=== PATIENT | male | born 1995 | race Caucasian/White ===

== ENCOUNTER 2018-08-18 09:30 | Outpatient (CLI) | payer BC ==
--- NOTE | 2018-08-18 16:58 | Diagnostic Imaging Report ---
STACY ROBIN [facility] [address] [facility] [address] [address] Report Submission Date: Aug 18, 2018 10:03:15 AM CDT Patient Study Name: ROCKY KIMBALL Date: Aug 18, 2018 9:39:50 AM CDT Modality Type: DX Gender: M Description: LOWER EXTREMITY : 89 Institution: [facility] Physician: STACY ROBIN Left knee History: Pain. Injured at a competition. AP, lateral and sunrise views of the left knee demonstrate no osseous abnormality and no joint effusion. Impression: No osseous abnormality. Electronically signed on Aug 18, 2018 10:03:15 AM CDT by: Ashely LOVING
== END 2018-08-18 09:32 ==
LOC: RAD 09:30
PROVIDERS: ATTEND Nurse Practitioner Family
DX: M25.562 Pain in left knee (principal)
CPT/HCPCS: 73562

== ENCOUNTER 2019-06-07 07:01 | Emergency (ER) | payer OTHER ==
--- NOTE | 2019-06-07 07:12 | ED Physician Documentation ---
General Adult - HISTORIAN Historian: patient - HPI Stated Complaint: left flank pain which is resolved Chief Complaint: Flank Pain Onset: hours (1) Timing: gone now Severity: mild Further Comments: yes (He states that woke at 0615 and he had pain in the left flank - he was not able to get comfortable. He got up and instantly had a lot sweating. He states that lasted a few seconds he did urinate and the sweating and pain went away. No pain with urination. No visable blood. No noted injury) - ROS CONST: no problems - PAST HX Past History: none Immunizations: UTD Allergies/Adverse Reactions: Allergies Allergy/AdvReac Type Severity Reaction Status Date / Time Penicillins Allergy Unknown Unverified 06/07/19 07:19 Home Medications: Ambulatory Orders Medication Instructions Recorded Weight Loss Medication 06/07/19 - SOCIAL HX Smoking History: non-smoker Alcohol Use: none Drug Use: none - FAMILY HX Family History: No - REVIEWED ASSESSMENTS Nursing Assessment Reviewed: Yes Vitals Reviewed: Yes General Adult Physical Exam - PHYSICAL EXAM GENERAL APPEARANCE: no distress EENT: eye inspection normal, no signs of dehydration NECK: normal inspection RESPIRATORY: no resp distress, chest non-tender, breath sounds normal CVS: reg rate & rhythm, heart sounds normal ABDOMEN: soft, normal bowel sounds, no distension, non-tender BACK: normal inspection, no CVA tenderness SKIN: warm/dry, normal color EXTREMITIES: non-tender NEURO: oriented X3 Discharge Clincal Impression: Flank pain Referrals: Kenyetta Pollard MD [Primary Care Provider] - 2 Days Comments: 1. Increase fluids 2. Monitor for any blood in urine 3. Follow up with PCP in 2-4 days 4. Return to ER for any increasing concerns Condition: Stable Disposition: 01 HOME, SELF-CARE Decision to Admit: NO Date of Decison to Admit: 06/07/19 Decision Time: 08:03
[2019-06-07 08:18] VITALS: BP 130/84
[2019-06-07 08:53] LABS: APPEARANCE,URINE CLEAN (CLEAR); COLOR,URINE YELLOW (YELLOW); OCCULT BLOOD,URINE 2+ (NEGATIVE); UROBILINOGEN URINE 0.2 Eu (0.2-1.0)
== END 2019-06-07 08:05 | disposition home or self-care (01) ==
LOC: ED 07:01
DX: R10.9 Unspecified abdominal pain (principal)
CPT/HCPCS: 81002; 99281; 99282

== ENCOUNTER 2019-06-10 09:00 | Emergency (ER) | payer BC ==
--- NOTE | 2019-06-10 09:03 | ED Physician Documentation ---
General Adult - HISTORIAN Historian: patient - HPI Stated Complaint: urinating blood since 430 this am Chief Complaint: Male Genitourinary Problems Onset: hours (3) Timing: still present Severity: mild Further Comments: yes (He was seen last week and suspected a kidney stone. He had resolved pain. This am he woke at 430 this am and noticed blood in his ur ine. He has mild pain on left lower back. Denies any fever. He is not sexually active. He does take Phentermine for weight loss.) - ROS CONST: no problems GI/: problems urinating. denies: abdominal pain, vomiting, nausea MS/SKIN/LYMPH: none NEURO/PSYCH: denies: headache - PAST HX Past History: none Immunizations: UTD Allergies/Adverse Reactions: Allergies Allergy/AdvReac Type Severity Reaction Status Date / Time Penicillins Allergy Unknown Verified 06/10/19 09:28 Home Medications: Ambulatory Orders Medication Instructions Recorded Weight Loss Medication 06/07/19 - SOCIAL HX Smoking History: non-smoker Alcohol Use: none Drug Use: none - FAMILY HX Family History: No - VITAL SIGNS Vital Signs: Vital Signs Temp Pulse Resp BP Pulse Ox 130/84 06/07/19 08:16 - REVIEWED ASSESSMENTS Nursing Assessment Reviewed: Yes Vitals Reviewed: Yes Progress - Progress Progress: 1140: discussed results with PT - he needs to call Dr Pollard this am to get appt early next week. He is agreeable to plan DG General Adult Physical Exam - PHYSICAL EXAM GENERAL APPEARANCE: no distress EENT: eye inspection normal, no signs of dehydration NECK: normal inspection RESPIRATORY: no resp distress, chest non-tender, breath sounds normal CVS: reg rate & rhythm, heart sounds normal ABDOMEN: soft, normal bowel sounds, no distension BACK: CVA tenderness (L) SKIN: warm/dry, normal color EXTREMITIES: non-tender, normal range of motion, no evidence of injury, no edema NEURO: oriented X3 Discharge Clincal Impression: UTI (urinary tract infection) Qualifiers: Urinary tract infection type: site unspecified Hematuria presence: with hematuria Qualified Code(s): N39.0 - Urinary tract infection, site not specified Referrals: Kenyetta Pollard MD [Primary Care Provider] - 2 Days Comments: 1. Bactrim DS Take 1 by mouth twice daily x 10 days 2. Increase fluids 3. Follow up with Dr Pollard early next week 4. Return to ER for any increasing concerns Condition: Stable Disposition: 01 HOME, SELF-CARE Decision to Admit: NO Date of Decison to Admit: 06/10/19 Decision Time: 11:43
[2019-06-10] MEDS ORDERED: 0.9 % SODIUM CHLORIDE 1,000 ML IV ONE (09:30)
[2019-06-10 09:51] LABS: NEUTROPHILS # 12.8 # k/uL (1.4-7.7)
[2019-06-10 10:38] LABS: eGFR (Non-African) > 60
[2019-06-10 12:03] VITALS: BP 149/99
--- NOTE | 2019-06-10 12:38 | Diagnostic Imaging Report ---
STACY ROBIN [facility] [address] [facility] [address] [place], [place]. [address] Report Submission Date: Jun 10, 2019 11:26:24 AM CDT Patient Study Name: ROCKY KIMBALL Date: Jun 10, 2019 10:51:57 AM CDT Modality Type: CT\SR Gender: M Description: CT ABD PELVIS W/ CON : 97 Institution: [facility] Physician: STACY ROBIN Examination: CT Abdomen/pelvis History: HEMATURIA Comparison exams: None available Technique: CT Abdomen/pelvis with IV protocol. Findings: Liver, spleen, adrenals, pancreas, kidneys and gallbladder are without gross irregularity. No gallstone. No suspicious renal calcifications. Ureters are nondilated in their course through the abdomen and pelvis. No central calcifications. Bladder margin within normal limits. Abdominal aorta without aneurysm or peripheral atherosclerotic disease. Cardiac silhouette is not enlarged. No pericardial effusion. Bowel unopacified limiting evaluation. Scattered small bowel air-fluid levels without abnormal dilation. Stool within the large bowel limiting sensitivity. No mesenteric inflammatory changes or free fluid. Appendix is visualized and is without inflammatory changes. Osseous structures appropriate for age. Lung bases demonstrate atelectasis without infiltrate. No effusion. Impression: No acute upper abdominal organ inflammatory process. No abnormal bowel dilation or inflammation. No gallstone. No suspicious renal calcifications or abnormal ureteric dilation. No lung base consolidation or effusion. Electronically signed on Jun 10, 2019 11:26:24 AM CDT by: Saulo LOVING
[2019-06-10 12:49] LABS: COLOR,URINE RED (YELLOW); OCCULT BLOOD,URINE 3+ (NEGATIVE); PH URINE 8.5 (5.0 - 8.0)
== END 2019-06-10 11:55 | disposition home or self-care (01) ==
LOC: ED 09:00
DX: N39.0 Urinary tract infection, site not specified (principal)
CPT/HCPCS: 74177; 80053; 81002; 85025; 87086; 96360; 99283; J7030; Q9967; S1016